=== PATIENT | male | born 1955 | race Caucasian/White ===

== ENCOUNTER 2024-11-25 21:04 | Emergency (ER) | payer SELFPAY ==
[~2024-11-25] VITALS: Ht 175.3 cm; Wt 92.1 kg
[2024-11-25] MEDS ORDERED: SODIUM BICARBONATE 4.2 % (NEUT) 5 ML VIAL ONE (23:10)
[2024-11-25] MEDS ORDERED: LIDOCAINE 1%-EPI 1:100,000 20 ML VIAL ONE (23:11)
[2024-11-25] MEDS ORDERED: CEFTRIAXONE 1 G VIAL ONE (23:18)
[2024-11-25] MEDS ORDERED: AMOXICILLIN-CLAVUL 875-125MG TABLET ONE (23:18)
[2024-11-25] MEDS: SODIUM BICARBONATE 4.2 % (NEUT) 5 ML VIAL TP ONE (23:22)
[2024-11-25] MEDS: LIDOCAINE 1%-EPI 1:100,000 20 ML VIAL IJ ONE (23:22)
[2024-11-25] MEDS: CEFTRIAXONE 1 G VIAL IM ONE (23:31)
[2024-11-25] MEDS: AMOXICILLIN-CLAVUL 875-125MG TABLET PO ONE (23:31)
[2024-11-25] MEDS ORDERED: ONDANSETRON ODT 4 MG TAB.RAPDIS ONE (23:32)
[2024-11-25] MEDS ORDERED: HYDROCODONE/APAP 10-325 MG TABLET ONE (23:32)
[2024-11-25] MEDS ORDERED: ONDA4TAB11 PO (23:44)
[2024-11-25] MEDS ORDERED: HYDR-4209 PO (23:44)
[2024-11-25] MEDS ORDERED: AMOX-430 PO (23:44)
[2024-11-25] MEDS: HYDROCODONE/APAP 10-325 MG TABLET PO ONE (23:51)
[2024-11-25] MEDS: ONDANSETRON ODT 4 MG TAB.RAPDIS SL ONE (23:52)
[2024-11-25 23:55] VITALS: BP 152/89; O2SAT 98
== END 2024-11-25 23:55 | disposition home or self-care (01) ==
LOC: ER 21:09
DX: S61.512A Laceration without foreign body of left wrist, initial encounter (principal); W54.0XXA Bitten by dog, initial encounter; Y93.89 Activity, other specified; Y92.89 Other specified places as the place of occurrence of the external cause; Y99.8 Other external cause status
CPT/HCPCS: 12002; 73110; 96372; 99284; J0696; J3490; A4606; A4663; Q0162

== ENCOUNTER 2024-11-27 08:55 | Inpatient (IN) | payer MEDICAID, MEDICARE ==
[~2024-11-27] VITALS: Ht 175.3 cm; Wt 93.0 kg
[~2024-11-27 08:55] MED LIST: AMOX-430 PO; HYDR-4209 PO; ONDA4TAB11 PO
[2024-11-27] MEDS: CEFTRIAXONE 1 G in IV DEXTROSE 5% 50 ML IV ONE (10:02)
[2024-11-27] MEDS ORDERED: CEFTRIAXONE /D5W 50ML IVPB **ER PYXIS IV ONE (10:06)
[2024-11-27 10:17] LABS: CALCIUM 9.4 mg/dL (8.5-10.1); POTASSIUM 3.8 mmol/L (3.5-5.1)
[2024-11-27] MEDS ORDERED: OXYCODONE/APAP 5-325 MG TABLET ONE (10:18)
[2024-11-27] MEDS: OXYCODONE/APAP 5-325 MG TABLET PO ONE (10:28)
[2024-11-27 10:30] LABS: BASOPHILS % (AUTO) 0.6 % (0.0-2.0); EOSINOPHILS # (AUTO) 0.1 K/uL (0.0-0.7); EOSINOPHILS % (AUTO) 1.1 % (0.0-7.0); HEMOGLOBIN 12.2 g/dL (12.5-16.3); LYMPHOCYTES % (AUTO) 33.6 % (20.5-51.5); MEAN CORPUSCULAR HEMOGLOBIN 29.6 uug (23.8-33.4); MEAN CORPUSCULAR HGB CONC 33 g/dL (32.5-36.3); MEAN CORPUSCULAR VOLUME 89.7 fL (73.0-96.2); MONOCYTES # (AUTO) 0.5 K/uL (0.1-1.30); NEUTROPHILS # (AUTO) 3.4 K/uL (1.8-8.9); NEUTROPHILS % (AUTO) 56.7 % (38.5-71.5); RED BLOOD CELL COUNT(AUTO) 4.12 MIL/uL (4.06-5.63); WHITE BLOOD COUNT (AUTO) 5.9 K/uL (3.6-10.2)
[2024-11-27 10:31] LABS: PLATELET COUNT (AUTO) 89 K/uL (152-348)
[2024-11-27] MEDS ORDERED: ACETAMINOPHEN 325 MG TABLET PO PRN (11:15)
[2024-11-27] MEDS ORDERED: hydrALAZINE HCL 20 MG/1 ML VIAL IV PRN (11:15)
[2024-11-27] MEDS ORDERED: ONDANSETRON 4 MG/2 ML VIAL IV PRN (11:15)
[2024-11-27] MEDS ORDERED: HYDROMORPHONE 1 MG/1 ML DISP.SYRIN ONE (11:16)
[2024-11-27] MEDS: HYDROMORPHONE 1 MG/1 ML DISP.SYRIN IV ONE (11:20)
[2024-11-27] MEDS: ONDANSETRON 4 MG/2 ML VIAL IV ONE (11:43)
[2024-11-27] MEDS ORDERED: VANCOMYCIN IV 1,000 MG in IV DEXTROSE 5% 250 ML IV SCH (11:45)
[2024-11-27 11:58] VITALS: BP 140/56; TEMP 97.6; O2SAT 96
[2024-11-27] MEDS: CEFEPIME HCL 1 G in IV DEXTROSE 5% 50 ML IV SCH (13:36)
[2024-11-27] MEDS: IV NS 1000 ML 1,000 ML IV SCH (13:36)
[2024-11-27] MEDS: VANCOMYCIN IV 1,000 MG in IV DEXTROSE 5% 250 ML IV SCH (13:36)
[2024-11-27] MEDS: MORPHINE SULFATE 2 MG/1 ML DISP.SYRIN IVP PRN (13:54)
[2024-11-27] MEDS ORDERED: ROSU10TA2 PO (14:15)
[2024-11-27 15:09] VITALS: BP 135/55; TEMP 98.6; O2SAT 97
[2024-11-27 15:47] VITALS: BP 126/48; TEMP 98.4; O2SAT 97
[2024-11-27] MEDS: OXYCODONE/APAP 5-325 MG TABLET PO PRN (16:59)
[2024-11-27] MEDS: HEPARIN SODIUM,PORCINE 5,000 UNITS/ML VIAL SQ SCH (17:00)
[2024-11-27 19:48] VITALS: BP 121/64; TEMP 98.7; O2SAT 97
[2024-11-27] MEDS: ATORVASTATIN 20 MG TABLET PO SCH (21:09)
[2024-11-27] MEDS ORDERED: OLANZAPINE 10 MG VIAL IM PRN (21:45)
[2024-11-27] MEDS ORDERED: PIPERACILLIN SODIUM/TAZOBACTAM 3.375 G in IV DEXTROSE 5% 50 ML IV SCH (22:00)
[2024-11-27] MEDS ORDERED: PIPERACILLIN/TAZOBACTAM/D5W 50 ML IV ONE ×2 (22:11)
[2024-11-27] MEDS: PIPERACILLIN SODIUM/TAZOBACTAM 3.375 G in IV DEXTROSE 5% 50 ML IV SCH (22:27)
[2024-11-28 04:32] VITALS: BP 132/64; TEMP 98.9; O2SAT 95
[2024-11-28 07:05] LABS: BASOPHILS % (AUTO) 0.7 % (0.0-2.0); EOSINOPHILS # (AUTO) 0.1 K/uL (0.0-0.7); EOSINOPHILS % (AUTO) 2.5 % (0.0-7.0); HEMATOCRIT 35.4 % (36.7-47.1); HEMOGLOBIN 11.9 g/dL (12.5-16.3); LYMPHOCYTES # (AUTO) 2.3 K/uL (0.8-4.8); LYMPHOCYTES % (AUTO) 45.5 % (20.5-51.5); MEAN CORPUSCULAR HEMOGLOBIN 30.1 uug (23.8-33.4); MEAN CORPUSCULAR HGB CONC 34 g/dL (32.5-36.3); MEAN CORPUSCULAR VOLUME 89.9 fL (73.0-96.2); MONOCYTES # (AUTO) 0.2 K/uL (0.1-1.30); MONOCYTES % (AUTO) 4.9 % (0.0-11.0); NEUTROPHILS # (AUTO) 2.3 K/uL (1.8-8.9); NEUTROPHILS % (AUTO) 46.4 % (38.5-71.5); PLATELET COUNT (AUTO) 94 K/uL (152-348); RED BLOOD CELL COUNT(AUTO) 3.94 MIL/uL (4.06-5.63); RED CELL DISTRIBUTION WIDTH 13.6 % (12.1-16.2)
[2024-11-28 07:09] LABS: DIFFERENTIAL COMMENT 1
[2024-11-28 07:19] LABS: ALBUMIN 3.3 g/dL (3.4-5.0); BILIRUBIN,TOTAL 0.5 mg/dL (0.2-1.0); CREATININE 0.8 mg/dL (0.6-1.3); PHOSPHOROUS 3.4 mg/dL (2.5-4.9); POTASSIUM 4.2 mmol/L (3.5-5.1); TOTAL PROTEIN, SERUM 6.5 g/dL (6.4-8.2)
[2024-11-28 07:45] LABS: CALCIUM 8.6 mg/dL (8.5-10.1)
[2024-11-28 08:46] LABS: NEUTROPHILS % (MANUAL) 52 % (42-75)
[2024-11-28 08:47] LABS: EOSINOPHILS % (MANUAL) 3 % (0-8); LYMPHOCYTES % (MANUAL) 41 % (20-40); MONOCYTES % (MANUAL) 4 % (2-10); PLATELET ESTIMATE DECREASED
[2024-11-28 10:41] VITALS: BP 131/59; TEMP 98.7; O2SAT 96
[2024-11-28] MEDS: VANCOMYCIN IV 1,250 MG in IV DEXTROSE 5% 250 ML IV SCH (13:23)
[2024-11-28] MEDS: PIPERACILLIN SODIUM/TAZOBACTAM 3.375 G in IV DEXTROSE 5% 100 ML IV SCH (14:20)
[2024-11-28 15:40] VITALS: BP 145/64; TEMP 99.2; O2SAT 94
[2024-11-28 19:55] VITALS: BP 115/61; TEMP 98.6; O2SAT 95
[2024-11-29 04:52] VITALS: BP 119/64; TEMP 97.6; O2SAT 95
[2024-11-29 08:00] VITALS: BP 127/65; TEMP 97.7; O2SAT 96
[2024-11-29 10:50] VITALS: BP 123/64; TEMP 98.8; O2SAT 93
[2024-11-29 15:55] VITALS: BP 154/65; TEMP 99.1; O2SAT 97
[2024-11-29 19:00] VITALS: BP 160/70; TEMP 98.4; O2SAT 97
[2024-11-29] MEDS ORDERED: TDAP DIPH,PERTUSS,TET VAC/PF 0.5 ML DISP.SYRIN IM ONE (23:45)
[2024-11-30] MEDS: TDAP DIPH,PERTUSS,TET VAC/PF 0.5 ML DISP.SYRIN IM ONE (00:02)
[2024-11-30 06:00] VITALS: BP 150/72; TEMP 98.3; O2SAT 98
[2024-11-30 11:33] VITALS: BP 128/80; TEMP 98.1; O2SAT 98
[2024-11-30] MEDS: VANCOMYCIN HCL 1,500 MG in IV DEXTROSE 5% 500 ML IV SCH (14:03)
[2024-11-30 15:42] VITALS: BP 132/59; TEMP 98.2; O2SAT 96
[2024-11-30] MEDS: PIPERACILLIN SODIUM/TAZOBACTAM 3.375 G in IV DEXTROSE 5% 50 ML IV SCH (17:02)
[2024-11-30 19:05] VITALS: BP 117/68; TEMP 98.4; O2SAT 96
[2024-11-30] MEDS ORDERED: NEOMY/BACITRA/POLYMYXIN B OINT UD PACKET TP ONE (21:11)
[2024-11-30] MEDS: NEOMY/BACITRA/POLYMYXIN B OINT UD PACKET TP ONE (21:53)
[2024-12-01 05:55] VITALS: BP 99/50; TEMP 98; O2SAT 95
[2024-12-01 07:01] LABS: EOSINOPHILS # (AUTO) 0.1 K/uL (0.0-0.7); EOSINOPHILS % (AUTO) 3.8 % (0.0-7.0); HEMATOCRIT 33.4 % (36.7-47.1); HEMOGLOBIN 11.3 g/dL (12.5-16.3); LYMPHOCYTES % (AUTO) 54.6 % (20.5-51.5); MEAN CORPUSCULAR HEMOGLOBIN 30.1 uug (23.8-33.4); MEAN CORPUSCULAR HGB CONC 34 g/dL (32.5-36.3); MEAN CORPUSCULAR VOLUME 89.1 fL (73.0-96.2); MONOCYTES # (AUTO) 0.2 K/uL (0.1-1.30); MONOCYTES % (AUTO) 4.6 % (0.0-11.0); NEUTROPHILS # (AUTO) 1.3 K/uL (1.8-8.9); PLATELET COUNT (AUTO) 116 K/uL (152-348); RED BLOOD CELL COUNT(AUTO) 3.75 MIL/uL (4.06-5.63); RED CELL DISTRIBUTION WIDTH 13.3 % (12.1-16.2); WHITE BLOOD COUNT (AUTO) 3.6 K/uL (3.6-10.2)
[2024-12-01 07:03] LABS: DIFFERENTIAL COMMENT 1
[2024-12-01 07:05] LABS: CREATININE 0.9 mg/dL (0.6-1.3); POTASSIUM 4.1 mmol/L (3.5-5.1)
[2024-12-01 07:09] LABS: CALCIUM 8.6 mg/dL (8.5-10.1)
[2024-12-01 11:37] VITALS: BP 136/71; TEMP 98.8; O2SAT 98
[2024-12-01 16:00] VITALS: BP 137/44; TEMP 98.3; O2SAT 96
[2024-12-01 19:10] VITALS: BP 109/53; TEMP 98.4; O2SAT 96
[2024-12-01] MEDS ORDERED: NEOMY/BACITRA/POLYMYXIN B OINT UD PACKET TP ONE (22:21)
[2024-12-02 05:51] VITALS: BP 138/57; TEMP 98.3; O2SAT 93
[2024-12-02 08:01] VITALS: BP 151/73; TEMP 98; O2SAT 98
[2024-12-02] MEDS ORDERED: AMOX-430 PO (10:33)
[2024-12-02] MEDS ORDERED: CITA20TA16 PO (10:33)
[2024-12-02] MEDS ORDERED: DOXY-326 PO (10:33)
[2024-12-02] MEDS ORDERED: ROSU20TA2 PO (10:33)
[2024-12-02] MEDS ORDERED: HYDR-3972 PO (10:37)
== END 2024-12-02 12:05 | disposition home or self-care (01) | DRG 383 ==
LOC: ER 08:55 → MEDSURG3 11:06
PROVIDERS: ADMIT Internal Medicine; ATTEND Internal Medicine
PROC: 05HB33Z Insertion of Infusion Device into Right Basilic Vein, Percutaneous Approach (ICD-10-PCS; principal; 2024-12-01)
DX: L03.114 Cellulitis of left upper limb (principal); D69.6 Thrombocytopenia, unspecified; S51.852D Open bite of left forearm, subsequent encounter; W54.0XXD Bitten by dog, subsequent encounter; E78.5 Hyperlipidemia, unspecified; M06.9 Rheumatoid arthritis, unspecified; D64.9 Anemia, unspecified
CPT/HCPCS: 36415; 73200; 84100; 85025; 87040; 90715; A4663; G0378; J0692; J0696; J1171; J1644; J2270; J2405; J2543; J3370; J3371; J7040; J7050; J7060